=== PATIENT | male | born 1980 | race Asian ===

== ENCOUNTER 2020-06-11 11:53 | Day surgery (SDC) | payer OTHER, SELFPAY ==
[~2020-06-11] VITALS: Ht 177.8 cm; Wt 81.6 kg
[2020-06-11] MEDS ORDERED: MIDAZOLAM 2 MG/2 ML VIAL ONE ×2 (13:11)
[2020-06-11] MEDS ORDERED: diphenhydrAMINE 50 MG/ML VIAL ONE (13:11)
[2020-06-11] MEDS ORDERED: LIDOCAINE 2% 100 MG/5 ML UJET TP ONE ×2 (13:12→14:05)
[2020-06-11] MEDS ORDERED: fentaNYL citrate 0.05 MG/ML VIAL ONE (13:12)
[2020-06-11] MEDS ORDERED: MIDAZOLAM 2 MG/2 ML VIAL IVP ONE (14:00)
[2020-06-11] MEDS ORDERED: diphenhydrAMINE 50 MG/ML VIAL IVP ONE (14:00)
[2020-06-11] MEDS ORDERED: fentaNYL citrate 0.05 MG/ML VIAL IVP ONE (14:00)
[2020-06-11] MEDS ORDERED: EPINEPHrine PFS 0.1 MG/ML SYR IVP ONE (14:41)
[2020-06-11] MEDS ORDERED: EPINEPHrine 1:1000 - 1 MG/ML AMP MC ONE (15:10)
== END 2020-06-11 15:10 | disposition home or self-care (01) ==
LOC: MDS 11:53 → MMU 12:08 → MDS 15:10
PROVIDERS: ATTEND Internal Medicine Gastroenterology
DX: K62.5 Hemorrhage of anus and rectum (principal); K63.5 Polyp of colon; K59.00 Constipation, unspecified
CPT/HCPCS: 45381; 45385; 87426; J0171; J1200; J2250; J3010; 88305